=== PATIENT | male | born 1945 | race Caucasian/White ===

== ENCOUNTER 2024-12-12 11:57 | Emergency (ER) | payer MEDICARE, SELFPAY ==
[2024-12-12] VITALS (12 sets, daily range): BP systolic 118–174; BP diastolic 71–99; PULSE 60–78; RESP 8–29; TEMP 36.8; O2SAT 95–100
--- NOTE | ~2024-12-12 | XR_ITS ---
EXAMINATION: XR chest 2V 12/12/2024 12:28 INDICATION: EXAMINATION: XR chest 2V 12/12/2024 12:28 INDICATION: Weakness and dizziness PROCEDURE: AP portable chest COMPARISON: No prior studies for comparison. FINDINGS: No focal pneumonia. There is left basilar atelectasis. No edema. The cardiomediastinal silh ouette is within normal limits. There are no pleural effusions. There is no pneumothorax suspected. IMPRESSION: 1: NO ACUTE CARDIOPULMONARY DISEASE. PROCEDURE: COMPARISON: FINDINGS: The lungs are clear. The cardiomediastinal silhouette is within normal limits. There are no pleural effusions. There is no pneumothorax suspected. IMPRESSION: 1: NO ACUTE CARDIOPULMONARY DISEASE. Reviewed, dictated and finalized at location B. IMPRESSION: 1: NO ACUTE CARDIOPULMONARY DISEASE. PROCEDURE: COMPARISON: FINDINGS: The lungs are clear. The cardiomediastinal silhouette is within norm al limits. There are no pleural effusions. There is no pneumothorax suspected .
--- NOTE | 2024-12-12 12:02 | ECG_ITS ---
Test Date: 2024-12-12 12:08:00 Measurements Intervals [place] Rate: 70 P: 16 MO: 216 QRS: -42 QRSD: 142 T: -4 QT: 412 QTc: 446 Interpretive Statements SINUS RHYTHM WITH FIRST DEGREE AV BLOCK MARKED LEFT AXIS DEVIATION [QRS AXIS < -30] RIGHT BUNDLE BRANCH BLOCK [120+ ms QRS DURATION, UPRIGHT V1, 40+ ms S IN I/aVL/V4/V5/V6] ABNORMAL ECG No previous ECG available for comparison Electronically Signed On 12-12-2024 14:21:53 CDT by Alberto Cleveland M.D.
[2024-12-12 12:14] LABS: Hematocrit 41.4 % (42.0-52.0); Hemoglobin 13.7 g/dL (14.0-18.0); Immature Granulocyte Percent A 0.6 % (0-0.5); Lymphocytes Absolute Auto 0.69 K/mm3 (0.9-3.2); Mean Corpuscular HGB Conc 33.1 g/dl (32-36); Mean Corpuscular Hemoglobin 30.6 pg (26-34); Mean Corpuscular Volume 92.6 fl (80-100); Nucleated Red Blood Cells Absolute Auto 0.000 K/mm3 (0.0-0.012); Nucleated Red Blood Cells Perc 0.0 % (0.0-0.2); Platelet Count Result 146 k/mm3 (150-375); Red Blood Count 4.47 M/mm3 (4.6-6.20); White Blood Count 10.3 K/mm3 (4.5-10.0)
[2024-12-12 12:38] LABS: Alanine Aminotransferase 29 U/L (6-50); Albumin Level 4.6 g/dL (3.5-5.1); Alkaline Phosphatase 58 U/L (38-126); Aspartate Amino Transferase 32 U/L (17-59); Bilirubin,Total 0.6 mg/dL (0.2-1.3); Blood Urea Nitrogen 26 mg/dL (9-20); Calcium 9.9 mg/dL (8.4-10.2); Carbon Dioxide 23 mmol/L (22-30); Estimated CRCL calculation 56 ml/min; Estimated Glomerular Filt Rate > 60; Glucose 163 mg/dL (65-110); Total Protein 7.4 g/dL (6.3-8.2)
[2024-12-12 12:56] LABS: Anion Gap 11 mmol/L (4-12); Chloride 100 mmol/L (98-107); Potassium 4.7 mmol/L (3.4-5.0); Sodium 134 mmol/L (137-145)
--- OUTSIDE RECORDS SUMMARY | 2024-12-12 13:08 | XMS_ITS | Clinical Summary ---
Author Organization [facility] Address [address] [place] [address] Care Team Providers Care Deboning Team Leader Name Role Phone Alberto Vasquez MD Primary Care Provider [phone] Allergies No known active allergies Medications atorvastatin (LIPITOR) 40 mg tabletIndications:Prim canelo hypercholesterolemia Take 1 tablet (40 mg total) by mouth daily 90 tablet 3 01/30 Active omeprazole (PriLOSEC) 20 mg capsuleIndications:Gas troesophageal reflux disease without esophagitis Take 1 capsule (20 mg total) by mouth daily 90 capsule 3 01/30 Active sildenafiL, pulm.hypertension, (REVATIO) 20 mg tabletIndications: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 TAKE 1 TABLET BY MOUTH ONCE DAILY NEEDED FOR ERECTILE DYSFUNCTION 20 tablet 11 2023 Active lisinopriL (PRINIVIL,ZESTRIL) 40 mg tabletIndications:Esse ntial hypertension TAKE 1 TABLET(40 MG) BY MOUTH DAILY 90 tablet 4 2024 Active finasteride (PROSCAR) 5 mg tabletIndications:Augustine gn prostatic hyperplasia with urinary frequency Take 1 tablet (5 mg total) by mouth daily 90 tablet 2 06/23 Active pregabalin (LYRICA) 75 mg capsule Take 1 capsule (75 mg total) by mouth 2 (two) times a day 60 capsule 3 03/[address] (CYMBALTA) 30 mg capsule Take 1 capsule (30 mg total) by mouth daily 30 capsule 3 2024 Active HYDROcodone-acetaminop hen (NORCO) 5-325 mg per tabletIndications:Pain Take 1 tablet by mouth every 6 (six) hours as needed for pain 30 tablet 2024 Active ALPRAZolam (XANAX) 0.5 mg tabletIndications:Gene ralized anxiety disorder TAKE 1/2 TABLET(0.25 MG) BY MOUTH EVERY NIGHT NEEDED FOR ANXIETY 30 tablet 2024 Active amoxicillin-clavulanat e (AUGMENTIN) 875-125 mg per tabletIndications:Non- recurrent acute suppurative otitis media of right ear without spontaneous rupture of tympanic membrane Take 1 tablet by mouth 2 (two) times a day for 7 days 14 tablet 12/18 Active ALPRAZolam (XANAX) 0.5 mg tabletIndications:Gene ralized anxiety disorder TAKE 1/2 TABLET(0.25 MG) BY MOUTH EVERY NIGHT NEEDED FOR ANXIETY 30 tablet 11/27 Discontinued HYDROcodone-acetaminop hen (NORCO) 5-325 mg per tabletIndications:Pain Take 1 tablet by mouth every 6 (six) hours as needed for pain 30 tablet 11/17 Discontinued( Reorder) gabapentin (NEURONTIN) 300 mg capsule Take 1 capsule (300 mg total) by mouth 2 (two) times a day 60 capsule 12/11 Discontinued( No longer taking - Do not display on AVS) Active Problems Problem Noted Date Diagnosed Date Medicare annual wellness visit, subsequent 01/25 Routine general medical exam ination at a health care facility 01/25/2023 Screening for AAA (abdominal aortic aneurysm) Essential hypertension 01/25/2023 Depression screening negative:: 05/1805/17/2022 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 02/16/2022 Other chronic pain 02/16/2022 Arthritis of left hip 02/14/2022 Primary osteoarthritis of left hip 01/16/2022 Overview (01/16/2022): Added automatically from request for surgery [id number] Hereditary and idiopathic neuropathy, unspecifie d 05/28/2021 Assessment & Plan (12/11/2022 4:30 PM CDT): Stable, generally well controlled, patient reports no significant progression Patient reports continue on gabapentin 600 mg nightly; reports significant side effects including feeling goofy and sedation At this time continue gabapentin 600 mg nightly, will continue to monitor and taper once tolerating Presence of left artificial hip joint 05/28/2021 Vitamin D insufficiency 12/05/2017 Elevated low density lipoprotein (LDL) cholester ol level 03/08/2016 Perez's esophagus 12/02/2015 Overview (12/11/2018): Thyssen q3yr EGD Last EGD 2017 Assessment & Plan (12/11/2022 4:31 PM CDT): Follows with GI, last EGD was 2017; patient scheduling for EGD this January Continue Prilosec 20 mg daily Elevated blood pressure reading 08/31/2015 Assessment & Plan (12/11/2022 4:31 PM CDT): Well controlled, blood pressure at goal today Continue lisinopril 40 mg daily Hx of colonoscopy 11/30/2014 Benign prostatic hyperplasia 10/29/2013 Assessment & Plan (12/11/2022 4:31 PM CDT): Stable, generally well controlled, continue to monitor and monitor PSA Encounter for Medicare annual wellness exam 08/2013 Overview (01/20/2021): Last AWV: 01/20/21 Last annual screening for alcohol misuse (G0442): Last annual screening for depression/ PHQ9 (G0444): Last IBT for reduction of CVD (G0446): Last colonoscopy and date for recall: 08/2017 Last PSA: 01/20/21 Generalized anxiety disorder 10/29/2013 Overview (12/05/2017): Takes a xanax every day, fires it up each evening. In large part triggered by the pain Assessment & Plan (12/11/2022 4:30 PM CDT): Manageable, well controlled Continue Xanax 0.5 mg p.r.n. for severe anxiety Assessment & Plan (01/20/2021 10:25 AM CDT): STABLE Gastroesophageal reflux disease 10/29/2013 Assessment & Plan (12/11/2022 4:31 PM CDT): History of Perez's esophagus; follows with GI, scheduled for repeat EGD this year Continue omeprazole 20 mg daily Mononeuritis 10/29/2013 Piriformis syndrome 10/29/2013 Pain in extremity 10/18/2012 Low back pain 10/18/2012 Assessment & Plan (08/27/2020 10:58 AM CDT): I am still not sure the origin of this pain. He will address w/ NSGY Arthralgia of hip 09/22/2009 Overview (12/05/2017): In non-stop PT [facility] Assessment & Plan (12/05/2017 11:17 AM CDT): F/u Dr Workman 11/2017 Resolved Problems Problem Noted Date Diagnosed Date Resolved Date Acute pyelonephritis 05/17/2018 019 Overview (05/17/2018): On left Assessment & Plan (05/22/2018 4:44 PM COMPRESSOR REPAIRER): Renal condition is improving with treatment. Continue current medications. Renal condition will be reassessed in 1 month. We will check a renal us for stones Assessment & Plan (05/17/2018 4:40 PM COMPRESSOR REPAIRER): Renal condition is newly identified. Medication changes per orders. Renal condition will be reassessed 1 week. Increase fluid Despite warning I feel we need cipro for this and even so in light of yesterdays warning about AAA and in fact he was tested for this and was neg so is not high risk for it Encounter for Medicare annual wellness exam 12/05/2017 12/11/2018 Overview (12/05/2017): Performed 11/2017 Assessment & Plan (12/05/2017 11:19 AM CDT): Repeat 11/2018 We completed an HRA and provided a PPPS Umbilical hernia without obs truction and without gangrene 06/29/2016 12/05/2017 Nervousness(799.21) 05/29/2013 12/06/19 18 Encounters Date Type Department Care Team Description 12/11/2024 3:30 PM CDT Office Visit [facility] at [address] [phone] Jennifer Escoto NP Non-recurrent acute suppurative otitis media of right ear without spontaneous rupture of tympanic membrane (Primary Dx) 12/11/2024 10:00 AM CDT Office Visit [facility] Orthopaedic Surgery [address] [place] [address] Medical Office Building [address] [place] [address] Reuben Dangelo MD Lumbar radiculopathy (Primary Dx) 12/10/2024 1:36 PM CDT - 12/10/2024 11:59 PM CDT Hospital Encounter [facility] [address] [place] [address] Reuben Dangelo MD Lumbar radiculopathy Discharge Disposition: Discharge to home or self care 12/10/2024 12:56 PM CDT - 12/10/2024 11:59 PM CDT Hospital Encounter [facility] [address] [facility] [address] [place] [address] Osteoporosis, unspecified osteoporosis type, unspecified pathological fracture presence Discharge Disposition: Discharge to home or self care 12/03/2024 10:00 AM CDT Office Visit [facility] 6th [place] [address] [place] [address] Radha Severino NP Sensorimotor neuropathy (Primary Dx) 11/13/2024 12:30 PM CDT Office Visit [facility] Orthopaedic Surgery [address] [place] [address] Medical Office Building [address] [place] [id number] Reuben Dangelo MD Osteoporosis, unspecified osteoporosis type, unspecified pathological fracture presence (Primary Dx); Lumbar radiculopathy 11/13/2024 Telephone [facility] Orthopaedic Surgery [address] [facility] 6th [place] [address] [place] [phone] Karma Workman MD 09/22/2024 1:55 PM CDT - 09/22/2024 11:59 PM CDT Hospital Encounter [facility] [address] [place] [address] [address] [place] [address] Karma Workman MD Lumbar radiculopathy; Pain of left hip; Myofascial pain; Hereditary and idiopathic peripheral neuropathy; Spinal stenosis, lumbar region, with neurogenic claudication Discharge Disposition: Discharge to home or self care 09/18/2024 Telephone Radiology - [address] Ortho [address] [facility] [address] [place] [address] Alyssa Lees, RT 09/16/2024 10:20 AM CDT Office Visit [facility] Orthopaedic Surgery [address] [place] [address] Medical Office Building [address] [place] [address] Karma Workman MD Lumbar radiculopathy (Primary Dx); Pain of left hip; Myofascial pain; Hereditary and idiopathic peripheral neuropathy; Spinal stenosis, lumbar region, with neurogenic claudication 09/16/2024 10:07 AM CDT - 09/16/2024 11:59 PM CDT Hospital Encounter [facility] [address] [place] [address] [address] [place] [address] Lumbar radiculopathy Discharge Disposition: Discharge to home or self care from Last 3 Months Immunizations Immunization Administration Dates Next Due COVID-19 mRNA (PFIZER) 0.3 m L (30 mcg) vaccine (12 years and up) 08/17/2023 Influenza, Quad, Adjuvantate d, Intramuscular 03/23/2022 Influenza, Quadrivalent, Hig h Dose, Preservative Free, Intrr 02/19/2023,03/17/2021,02/26/2020,02/19,02/19/2018,02/16/2017 Influenza, Trivalent, High D ose, Split, Preservative Free, Intramuscular 02/19/2019,02/19/2018,02/16/2017,01/25,02/06/2013 Influenza, Unspecified 02/26/2020,2018,02/19/2018,02/16 Moderna SARS-CoV-2 Monovalen t Vaccination (12+ YRS) 01/26/2021,08/04/2020,07/05/2020 Pneumococcal Conjugate PCV 13 10/30/2013 Pneumococcal Polysaccharide PPV23 11/30/2009 RSV, Bivalent, Protein Subun it Rsvpref, Diluent (Abrysvo) 03/27/2023 Sars-cov-2 Covid-19 Mrna, Bi valent, Original/omicron Ba.1 02/19/2023 ZOSTER Recombinant 02/11/2018 Surgical History Surgery Date Site/Laterality Comments KNEE ARTHROSCOPY Arthroscopy knee EPIDURAL INJECTION LUMBOSACRAL 10/21/2014 N/A EPIDURAL INJECTION LUMBOSACRAL 09/14/2014 N/A EPIDURAL INJECTION LUMBOSACRAL 02/28/2013 N/A EPIDURAL INJECTION LUMBOSACRAL 10/28/2012 N/A HERNIA REPAIR FL FLUORO GUIDED INJECTION H IP LEFT 04/08/2020 Left FL UPPER GI AIR CONTRAST W KUB 08/19/2020 Left FL FLUORO GUIDED INJECTION H IP LEFT 01/17/2021 Left KNEE SURGERY FL FLUORO GUIDED INJECTION H IP LEFT 06/06/2021 Left IR INJECTION ARTHROGRAM SI JOINT LEFT INCLUDES IMAGING GUIDANCE 09/05/2021 Left HIP SURGERY KNEE ARTHROSCOPY W/ LATERAL RELEASE R. knee 20 yrs ago JOINT REPLACEMENT 01/2022 FL UPPER GI AIR CONTRAST W KUB 09/22/2024 Left Medical History Medical History Date Comments Peripheral neuropathy Gastric reflux Hiatal hernia GERD (gastroesophageal reflux disease) 30 yrs ag o Hypertension Family History Medical History Relation Name Comments Alcohol abuse Father Jean Paul Grant Diabetes Father Jean Paul Grant No Known Problems Mother Alcohol abuse Other Hypertension Other Relation Name Status Comments Father Jean Paul Grant Mother Other Social History Tobacco Use Types Packs/Day Years Used Date Smoking Tobacco: Never Smokeless Tobacco: Never Tobacco Cessation:Counseling Given: Not Answered Alcohol Use Standard Drinks/Week Comments No 0 (1 standard drink = 0.6 oz pur e alcohol) AUDIT-C Answer Date Recorded Q1: How often do you have a drink containing alcohol? Never 12/11/2022 Q2: How many drinks containi ng alcohol do you have on a typical day when you are drinking? Patient does not drink Q3: How often do you have si x or more drinks on one occasion? Never 12/11/2022 PHQ-2 Answer Date Recorded PHQ-2 Total Score (If total score is 3 or more points, staff should administer the PHQ-9) 0 12/11/2022 Personal Safety Answer Date Recorded Have you ever been in or are you currently in a harmful physical or emotional relationship or is someone making you feel afraid or unsafe? Denies 12/31/2023 Sex and Gender Information Value Date Recorded Sex Assigned at Not on file Legal Sex Male 8:24 PM COMPRESSOR REPAIRER Gender Identity Male 06/08/2019 10:04 PM COMPRESSOR REPAIRER Sexual Orientation Straight 06/08/2019 10 :04 PM COMPRESSOR REPAIRER Obstetrics History Last Filed Vital Signs Vital Sign Reading Time Taken Comments Blood Pressure 124/76 12/11/2024 3:01 PM CDT Pulse 64 12/11/2024 3:01 PM CDT Temperature 36.2 C (97.1 F) 12/11/2024 3:01 PM CDT Respiratory Rate 20 12/11/2024 3:01 PM CDT Oxygen Saturation 96% 12/11/2024 3:01 PM CDT Inhaled Oxygen Concentration - - Weight 89.4 kg (197 lb) 12/11/2024 3:01 PM CDT Height 182.9 cm (6') 11/13/2024 12:16 PM CDT Body Mass Index 26.72 11/13/2024 12:16 PM CDT Plan of Treatment Health Maintenance Due Date Last Done Comments Hepatitis C Screening 1945 DTaP/Tdap/Td Vaccine (1 - Tdap) 1956 Hepatitis B Screening 1963 Zoster Vaccine (2 of 2) 04/08/2018 02/11/2018 Colon Cancer Screening-FIT 08/27/2018 08/27/2017 Colon Cancer Screening-FOBT 08/27/2018 08/27/2017 Pneumococcal vaccine 65+ (3 of 3 - PCV20 or PCV21) 10/30/2018 10/30/2013, 11/30/2009 Colon Cancer Screening-DNA Stool 08/27/2020 08/28/19 Colon Cancer Screening-CT Colonography 08/27/2022 08/27/2017 Colon Cancer Screening-Sigmoidoscopy 08/27/2022 08/27/2017 Depression Screening 12/12/2023 12/11/2022, 01/23/2022, 01/23/2022, Additional history exists Fall Risk Assessment 12/12/2023 12/11/2022, 02/15/2022, 01/23/2022, Additional history exists Covid-19 Vaccine (2023- 5 season) 2024 08/17/2023, 02/19/2023, 09/22/2021, Additional history exists Influenza Vaccine (#1) 2025 , 03/23/2022, 03/17/2021, Additional history exists Well Visit 65+ 01/30/2025 01/31/2024, 12/28, 01/23/2022, Additional history exists Colon Cancer Screening-Colonoscopy 08/28/20272017 Colorectal Cancer Screening 08/28/2027 Medical Devices Implanted Type Area Hoop Flaring Machine Operator Helper Device Identifier Shelf Expiration Date Model / Serial / Lot Surgical Mesh Umbilical [employer] Shell Acet Hip Grp E Por Quad Ti Prime Am 60mm [id number] - [id number] Implanted:Qty: 1 on 02/14/2022 by Reuben Dangelo MD at [facility] Left: Hip [employer] [id number] 12/26/2028 [id number] / / [id number] [employer] [id number] Procotyl Prime Od40 Mm Liner Acetabular Sterile Latex Free - [id number] Implanted:Qty: 1 on 02/14/2022 by Reuben Dangelo MD at [facility] Left: Hip [employer] [id number] 02/25/2026 [id number] / / [id number] [employer] Dynasty Lineage 6.5mm 35mm Acetabular Screw Bone Biofoam [id number] - [id number] Implanted:Qty: 1 on 02/14/2022 by Reuben Dangelo MD at [facility] Left: Hip [employer] [id number] 08/26/2029 [id number] / / [id number] [employer] Dynasty Lineage 6.5mm 20mm Acetabular Screw Bone Biofoam [id number] - [id number] Implanted:Qty: 1 on 02/14/2022 by Reuben Dangelo MD at [facility] Left: Hip [employer] [id number] 01/26/2029 [id number] / / [id number] [employer] Profemur Tl2 Hip 9 High Offset Stem Femoral Sterile Latex Free [id number] - [id number] Implanted:Qty: 1 on 02/14/2022 by Reuben Dangelo MD at [facility] Left: Hip [employer] [id number] 11/25/2029 [id number] / / [id number] [employer] Procotyl 40mm 12/14 Medium Head Femoral Biolox Delta Sterile [id number] - [id number] Implanted:Qty: 1 on 02/14/2022 by Reuben Dangelo MD at [facility] Left: Hip [employer] [id number] 10/26/2029 [id number] / / [id number] Procedures Procedure Name Priority Date/Time Associated Diagnosis Comments DEXA AXIAL SKELETON BONE DENSITY 1 OR MORE SITES Schedule Routine, Read Routine (OP Routine) 12/10/2024 2:09 PM CDT Osteoporosis, unspecified osteoporosis type, unspecified pathological fracture presence CT LUMBAR SPINE WO CONTRAST Schedule Routine, Read Routine (OP Routine) 12/10/2024 1:42 PM CDT Lumbar radiculopathy TRANSFORAMINAL EPIDURAL INJECTION LUMBAR SACRAL 1 LEVEL LEFT Schedule Routine, Read Routine (OP Routine) 09/22/2024 3:00 PM CDT Lumbar radiculopathy Pain of left hip Myofascial pain Hereditary and idiopathic peripheral neuropathy Spinal stenosis, lumbar region, with neurogenic claudication XR SPINE LUMBAR COMPLETE 4 OR MORE VIEWS Schedule Routine, Read Routine (OP Routine) 09/16/2024 10:17 AM CDT Lumbar radiculopathy HM COLONOSCOPY Routine 08/27/2017 from Last 3 Months or Most Recently Relevant to Health Maintenance Results * DEXA Axial Skeleton Bone Density Multi Site (12/10/2024 2:09 PM CDT) Anatomical Region Laterality Modality Body N/A Digital Radiogra phy 12/10/2024 4:18 PM CDT Impressions 12/10/2024 5:41 PM CDT 1. The bone mineral density of the lumbar spine is normal. 2. The bone mineral density of the right femoral neck is mildly decreased. 3. The bone mineral density of the right total hip is normal. 4. Overall, the above findings are diagnostic of low bone mass (osteopenia) by WHO criteria. 5. Based on the FRAX fracture risk model, the 10-year probability for major osteoporotic fracture is 7.4% and that for hip fracture is 2.5%. This 10-year fracture risk estimate was calculated using the risk factors noted in the history above, along with the femoral neck bone density. FRAX is intended to help guide treatment decisions in men over age 50 and postmenopausal women with low bone mass (osteopenia). The National Osteoporosis Foundation (NOF) recommends that FDA-approved medical therapies be considered in postmenopausal women and men age 50 years and older with osteoporosis and those with low bone mass whose 10-year fracture probability by FRAX is >= 20% for major osteoporotic fracture or >= 3% for hip fracture. However, all treatment decisions require clinical judgment and consideration of individual patient factors, including patient preferences, comorbidities, previous drug use, risk factors not captured in the FRAX model (e.g., frailty, falls, vitamin D deficiency, increased bone turnover, interval significant decline in bone density) and possible under- or overestimation of fracture risk by FRAX. General comments regarding interpretation of bone density measurements: A) In children, premenopausal woman and males under age 50 not at increased risk for fractures only Z-scores, not T-scores are used to indicate risk. A Z-score above -2.0 is defined as within the expected range for age and Z-score at or less than -2.0 is below the expected range for age. A Z-score below the expected range for age in a patient with recent fractures and/or chronic corticosteroid treatment is consistent with a diagnosis of osteoporosis. B) In post menopausal women and males over 50, comparison of the measured bone mineral density with the average value in young normal subjects (the T-score) has been found to be useful in assessing fracture risk. Fracture risk approximately doubles for each 1.0 standard deviation (SD) in individual's hip or spine bone mineral density is below the average value of young normal subjects. The World Health Organization (WHO) has defined T-scores of -1.0 to -2.5 as diagnostic of low bone mass (OSTEOPENIA), and T-scores of -2.5 or lower to be diagnostic of OSTEOPOROSIS, based on the site of lowest bone density. Note that there will be a change in reporting format and reference databases as patients move from the younger population (group A) to the older population (group B) The National Osteoporosis Foundation (www.nof.org) recommends adequate intake of calcium and vitamin D and regular weight-bearing exercise in all patients. They recommend pharmacologic treatment in postmenopausal women and men age 50 and older presenting with any of the followin) Osteoporosis, after appropriate evaluation to exclude secondary causes. 2) A hip or vertebral (clinical or radiographic) fracture, regardless of the bone density. 3) Low bone mass (Osteopenia) and one or more of: other prior fractures, secondary causes associated with high risk of fracture (such as glucocorticoid use or total immobilization), or computed high risk of fracture (10-yr probability of hip fracture >= 3% or a 10-yr probability of any major osteoporosis-related fracture >= 20% based on the [place].-adapted WHO algorithm), available at http://www.shef.ac.uk/FRAX). Dictated by: Sylvia Strauss M.D. The radiology attending physician has personally reviewed this study, and had reviewed and/or edited this written report and agrees with it. Electronically signed by: Shanice Rabago M.D. Narrative 12/10/2024 5:41 PM CDT BONE DENSITOMETRY OF THE SPINE AND HIP DATE OF STUDY: 12/10/2024 HISTORY: 79-year-old asymptomatic man being evaluated for osteoporosis. Currently, he is not taking any antiresorptive medications. Evaluate bone mineral density. Additional risk factors for fracture: none. FINDINGS (SPINE): The bone mineral density of L1-L4 was assessed by dual-energy x-ray absorptiometry. The average bone mineral density within this region is 1.047 gm/sq-cm. This is 0.7 standard deviations above the mean of the average bone mineral density for age- and gender-matched subjects (the Z-score). It is equal to the mean peak bone mineral density in young adults (the T-score). FINDINGS (FEMORAL NECK): The bone mineral density of the right femoral neck was assessed by dual-energy x-ray absorptiometry. The average bone mineral density within the femoral neck region is 0.723 gm/sq-cm. This is equal to the mean of the average bone mineral density for age- and gender-matched subjects (the Z-score). It is 1.1 standard deviations below the mean peak bone mineral density in young adults (the T-score). FINDINGS (TOTAL HIP): The bone mineral density of the right hip was assessed by dual-energy x-ray absorptiometry. The average bone mineral density within the total hip region is 0.945 gm/sq-cm. This is 0.4 standard deviations above the mean of the average bone mineral density for age- and gender-matched subjects (the Z-score). It is equal to the mean peak bone mineral density in young adults (the T-score). SUMMARY OF CURRENT RESULTS: Region BMD T-score Z-score AP Spine (L1-L4) 1.047 0.0 0.7 Femoral Neck (Right) 0.723 -1.1 0.0 Total Hip (Right) 0.945 0.0 0.4 Procedure Note Shanice Rabago MD - 12/10/2024 BONE DENSITOMETRY OF THE SPINE AND HIP DATE OF STUDY: 12/10/2024 HISTORY: 79-year-old asymptomatic man being evaluated for osteoporosis. Currently, he is not taking any antiresorptive medications. Evaluate bone mineral density. Additional risk factors for fracture: none. FINDINGS (SPINE): The bone mineral density of L1-L4 was assessed by dual-energy x-ray absorptiometry. The average bone mineral density within this region is 1.047 gm/sq-cm. This is 0.7 standard deviations above the mean of the average bone mineral density for age- and gender-matched subjects (the Z-score). It is equal to the mean peak bone mineral density in young adults (the T-score). FINDINGS (FEMORAL NECK): The bone mineral density of the right femoral neck was assessed by dual-energy x-ray absorptiometry. The average bone mineral density within the femoral neck region is 0.723 gm/sq-cm. This is equal to the mean of the average bone mineral density for age- and gender-matched subjects (the Z-score). It is 1.1 standard deviations below the mean peak bone mineral density in young adults (the T-score). FINDINGS (TOTAL HIP): The bone mineral density of the right hip was assessed by dual-energy x-ray absorptiometry. The average bone mineral density within the total hip region is 0.945 gm/sq-cm. This is 0.4 standard deviations above the mean of the average bone mineral density for age- and gender-matched subjects (the Z-score). It is equal to the mean peak bone mineral density in young adults (the T-score). SUMMARY OF CURRENT RESULTS: Region BMD T-score Z-score AP Spine (L1-L4) 1.047 0.0 0.7 Femoral Neck (Right) 0.723 -1.1 0.0 Total Hip (Right) 0.945 0.0 0.4 IMPRESSION: 1. The bone mineral density of the lumbar spine is normal. 2. The bone mineral density of the right femoral neck is mildly decreased. 3. The bone mineral density of the right total hip is normal. 4. Overall, the above findings are diagnostic of low bone mass (osteopenia) by WHO criteria. 5. Based on the FRAX fracture risk model, the 10-year probability for major osteoporotic fracture is 7.4% and that for hip fracture is 2.5%. This 10-year fracture risk estimate was calculated using the risk factors noted in the history above, along with the femoral neck bone density. FRAX is intended to help guide treatment decisions in men over age 50 and postmenopausal women with low bone mass (osteopenia). The National Osteoporosis Foundation (NOF) recommends that FDA-approved medical therapies be considered in postmenopausal women and men age 50 years and older with osteoporosis and those with low bone mass whose 10-year fracture probability by FRAX is >= 20% for major osteoporotic fracture or >= 3% for hip fracture. However, all treatment decisions require clinical judgment and consideration of individual patient factors, including patient preferences, comorbidities, previous drug use, risk factors not captured in the FRAX model (e.g., frailty, falls, vitamin D deficiency, increased bone turnover, interval significant decline in bone density) and possible under- or overestimation of fracture risk by FRAX. General comments regarding interpretation of bone density measurements: A) In children, premenopausal woman and males under age 50 not at increased risk for fractures only Z-scores, not T-scores are used to indicate risk. A Z-score above -2.0 is defined as within the expected range for age and Z-score at or less than -2.0 is below the expected range for age. A Z-score below the expected range for age in a patient with recent fractures and/or chronic corticosteroid treatment is consistent with a diagnosis of osteoporosis. B) In post menopausal women and males over 50, comparison of the measured bone mineral density with the average value in young normal subjects (the T-score) has been found to be useful in assessing fracture risk. Fracture risk approximately doubles for each 1.0 standard deviation (SD) in individual's hip or spine bone mineral density is below the average value of young normal subjects. The World Health Organization (WHO) has defined T-scores of -1.0 to -2.5 as diagnostic of low bone mass (OSTEOPENIA), and T-scores of -2.5 or lower to be diagnostic of OSTEOPOROSIS, based on the site of lowest bone density. Note that there will be a change in reporting format and reference databases as patients move from the younger population (group A) to the older population (group B) The National Osteoporosis Foundation (www.nof.org) recommends adequate intake of calcium and vitamin D and regular weight-bearing exercise in all patients. They recommend pharmacologic treatment in postmenopausal women and men age 50 and older presenting with any of the followin) Osteoporosis, after appropriate evaluation to exclude secondary causes. 2) A hip or vertebral (clinical or radiographic) fracture, regardless of the bone density. 3) Low bone mass (Osteopenia) and one or more of: other prior fractures, secondary causes associated with high risk of fracture (such as glucocorticoid use or total immobilization), or computed high risk of fracture (10-yr probability of hip fracture >= 3% or a 10-yr probability of any major osteoporosis-related fracture >= 20% based on the [place].-adapted WHO algorithm), available at http://www.shef.ac.uk/FRAX). Dictated by: Sylvia Strauss M.D. The radiology attending physician has personally reviewed this study, and had reviewed and/or edited this written report and agrees with it. Electronically signed by: Shanice Rabago M.D. Reuben Dangelo MD IMPramod DXA PROCEDURE S Final Result * CT Lumbar Spine WO Contrast (12/10/2024 1:42 PM CDT) Anatomical Region Laterality Modality Spine N/A Computed Tomogra phy 12/10/2024 2:35 PM CDT Impressions 12/10/2024 2:35 PM CDT Levoscoliosis with multilevel degenerative changes of the lumbar spine as described above most notable at L3-L4 and L4-L5 where there is moderate spinal canal stenosis. In addition there is severe right neural foraminal stenosis at L4-L5. Electronically signed by: Roya Reyes M.D. Narrative 12/10/2024 2:35 PM CDT EXAMINATION: CT of the lumbar spine without contrast HISTORY: 79 years-old Male with intermittent lumbar radiculopathy localized to left without and posterolateral left thigh. TECHNIQUE: CT of the lumbar spine was performed according to the standard protocol without intravenous contrast. COMPARISON: MRI 09/02/2024 FINDINGS: There is mild levoscoliosis of the curvature with the apex at L3-L4 and slight rightward subluxation of L3 on L4. There is no acute fracture. The vertebral bodies are normal in height without compression fractures. The intervertebral disks have severe degeneration at L5-S1, and moderate degeneration at L4-L5 with loss of the intervertebral disc height. There is no soft tissue abnormality. The abdominal aorta has calcified atherosclerosis. There is atrophy of the posterior paraspinal muscles. L1-L2: The disc is normal in configuration. There is mild bilateral facet arthropathy. There is no neuroforaminal stenosis. There is no spinal canal stenosis. L2-L3: Mild disc bulge. There is mild bilateral facet arthropathy. There is mild left neuroforaminal stenosis. There is mild spinal canal stenosis. L3-L4: Moderate disc bulge. There is moderate bilateral facet arthropathy. There is moderate bilateral neuroforaminal stenosis. There is moderate spinal canal stenosis. L4-L5: Moderate disc bulge. There is severe right and moderate left facet arthropathy. There is severe right and moderate left neuroforaminal stenosis. There is moderate spinal canal stenosis. L5-S1: Moderate disc bulge. There is moderate bilateral facet arthropathy. There is moderate bilateral neuroforaminal stenosis. There is no spinal canal stenosis. Procedure Note Roya Reyes MD - 07/16/2025 EXAMINATION: CT of the lumbar spine without contrast HISTORY: 79 years-old Male with intermittent lumbar radiculopathy localized to left without and posterolateral left thigh. TECHNIQUE: CT of the lumbar spine was performed according to the standard protocol without intravenous contrast. COMPARISON: MRI 09/02/2024 FINDINGS: There is mild levoscoliosis of the curvature with the apex at L3-L4 and slight rightward subluxation of L3 on L4. There is no acute fracture. The vertebral bodies are normal in height without compression fractures. The intervertebral disks have severe degeneration at L5-S1, and moderate degeneration at L4-L5 with loss of the intervertebral disc height. There is no soft tissue abnormality. The abdominal aorta has calcified atherosclerosis. There is atrophy of the posterior paraspinal muscles. L1-L2: The disc is normal in configuration. There is mild bilateral facet arthropathy. There is no neuroforaminal stenosis. There is no spinal canal stenosis. L2-L3: Mild disc bulge. There is mild bilateral facet arthropathy. There is mild left neuroforaminal stenosis. There is mild spinal canal stenosis. L3-L4: Moderate disc bulge. There is moderate bilateral facet arthropathy. There is moderate bilateral neuroforaminal stenosis. There is moderate spinal canal stenosis. L4-L5: Moderate disc bulge. There is severe right and moderate left facet arthropathy. There is severe right and moderate left neuroforaminal stenosis. There is moderate spinal canal stenosis. L5-S1: Moderate disc bulge. There is moderate bilateral facet arthropathy. There is moderate bilateral neuroforaminal stenosis. There is no spinal canal stenosis. IMPRESSION: Levoscoliosis with multilevel degenerative changes of the lumbar spine as described above most notable at L3-L4 and L4-L5 where there is moderate spinal canal stenosis. In addition there is severe right neural foraminal stenosis at L4-L5. Electronically signed by: Roya Reyes M.D. Reuben Dangelo MD IMG CT PROCEDURES Final Result * IR Transforaminal Epidural Injection Lumbar Sacral 1 Level Left (09/22/2024 3:00 PM CDT) Narrative [facility] - 09/22/2024 3:01 PM CDT The images from this study are not interpreted by Radiology. Please refer to the physician's procedure / OR operative note. us Karma Workman MD IMG IR PROCEDURES Final Re sult [facility] * X-ray lumbar spine complete 4+ views (09/16/2024 10:17 AM CDT) Anatomical Region Laterality Modality Spine N/A Computed Radiogr aphy 09/16/2024 11:0 8 AM CDT Impressions 09/16/2024 12:17 PM CDT Multilevel degenerative lumbar disc disease which is worst and moderate at L5-S1. Dictated by: Jagdish Olsen M.D. The radiology attending physician has personally reviewed this study, and had reviewed and/or edited this written report and agrees with it. Electronically signed by: Kiel Kelly D.O. Narrative 09/16/2024 12:17 PM CDT EXAM: XR SPINE LUMBAR 4 OR MORE VIEWS HISTORY: Lumbar radiculopathy FINDINGS: 4 radiographs of the lumbar spine including flexion and extension views are compared with lumbar spine MRI dated 09/02/2024. There is mild lumbar levocurvature centered at L3-L4. There is no inducible spondylolisthesis. There is multilevel degenerative lumbar disc height loss which is worst and moderate at L5-S1. There is lower lumbar facet arthropathy. There is a partially imaged left total hip arthroplasty. Calcification of the abdominal aorta. Procedure Note Kiel Kelly, - 09/16/2024 EXAM: XR SPINE LUMBAR 4 OR MORE VIEWS HISTORY: Lumbar radiculopathy FINDINGS: 4 radiographs of the lumbar spine including flexion and extension views are compared with lumbar spine MRI dated 09/02/2024. There is mild lumbar levocurvature centered at L3-L4. There is no inducible spondylolisthesis. There is multilevel degenerative lumbar disc height loss which is worst and moderate at L5-S1. There is lower lumbar facet arthropathy. There is a partially imaged left total hip arthroplasty. Calcification of the abdominal aorta. IMPRESSION: Multilevel degenerative lumbar disc disease which is worst and moderate at L5-S1. Dictated by: Jagdish Olsen M.D. The radiology attending physician has personally reviewed this study, and had reviewed and/or edited this written report and agrees with it. Electronically signed by: Kiel Kelly D.O. Karma Workman MD IMG XR PROCEDURES Final Re sult * COLONOSCOPY (08/27/2017) Colonoscopy Normal Historical Provider HEALTH MAINTENANCE Final Result from Last 3 Months or Most Recently Relevant to Health Maintenance Insurance MEDICARE [facility] MEDICARE SUPPLEMENT MEDICARE [employer] [place] [address] [place] [address] [facility] MEDICARE MEDICARE [employer] MEDICARE SUPPLEMENT MEDICARE [facility] MEDICARE [facility] MEDICARE SUPPLEMENT Advance Directives For more information, please contact: [phone] * Full Code (Latest Code Status on File) Date Activated Date Inactivated Comments 02/14/2022 3:09 PM 02/15/2022 4:20 PM Care Teams Deboning Team Leader Relationship Specialty Start Date End Date Alberto Vasquez MD PCP - General Internal Medicine 06/26/23
--- OUTSIDE RECORDS SUMMARY | 2024-12-12 13:08 | XMS_ITS | Encounter Summary ---
Author Organization [facility] Healthcare Address [address] [place] [address] Care Team Providers Care [place] Machine Operator Name Role Phone Alberto Vasquez MD Primary Care Provider [phone]- [phone] Reason for Referral * MRI/CAT/PET Scan (Routine) - Closed Specialty Diagnoses / Procedures Referred By Contac t Referred To Contact Radiology Diagnoses Lumbar radiculopathy Procedures CT Lumbar Spine WO Contrast Reuben Dangelo MD [address] [employer] [facility] [address] [place] [address] Phone: tel: fax: [address] [address] Referral ID Status Reason Start Date Expiration Date Visits Re quested Visits Authorized [id number] Closed 11/13/2024 12/13/2025 1 1 Reason for Visit * MRI/CAT/PET Scan (Routine) - Closed Specialty Diagnoses / Procedures Referred By Contac t Referred To Contact Radiology Diagnoses Lumbar radiculopathy Procedures CT Lumbar Spine WO Contrast Reuben Dangelo MD [address] [employer] [place] [address] Phone: tel: fax: [address] [phone] Referral ID Status Reason Start Date Expiration Date Visits Re quested Visits Authorized [id number] Closed 11/13/2024 12/13/2025 1 1 Encounter Details Date Type Department Care Team (Latest Contact Info) Description 12/10/2024 1:36 PM CDT - 12/10/2024 11:59 PM CDT Hospital Encounter [facility] [address] [place] [address] Reuben Dangelo MD [address] [facility] [address] [place] [address] Lumbar radiculopathy Discharge Disposition: Discharge to home or self care Social History Tobacco Use Types Packs/Day Years Used Date Smoking Tobacco: Never Smokeless Tobacco: Never Alcohol Use Standard Drinks/Week Comments No 0 (1 standard drink = 0.6 oz pur e alcohol) AUDIT-C Answer Date Recorded Q1: How often do you have a drink containing alcohol? Never 12/11/2022 Q2: How many drinks containi ng alcohol do you have on a typical day when you are drinking? 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 Gender Identity Male 06/08/2019 10:04 PM AIDS NURSE Sexual Orientation Straight 06/08/2019 10 :04 PM AIDS NURSE documented as of this encounter Medications at Time of Discharge ALPRAZolam (XANAX) 0.5 mg tabletIndications:Genera lized anxiety disorder TAKE 1/2 TABLET(0.25 MG) BY MOUTH EVERY NIGHT NEEDED FOR ANXIETY 30 tablet 5 atorvastatin (LIPITOR) 40 mg tabletIndications:Primar y hypercholesterolemia Take 1 tablet (40 mg total) by mouth daily 90 tablet [address] (CYMBALTA) 30 mg capsule Take 1 capsule (30 mg total) by mouth daily 30 capsule 3 5 finasteride (PROSCAR) 5 mg tabletIndications:Benign prostatic hyperplasia with urinary frequency Take 1 tablet (5 mg total) by mouth daily 90 tablet 2 5 026 HYDROcodone-acetaminophe n (NORCO) 5-325 mg per tabletIndications:Pain Take 1 tablet by mouth every 6 (six) hours as needed for pain 30 tablet 5 lisinopriL (PRINIVIL,ZESTRIL) 40 mg tabletIndications:Essent ial hypertension TAKE 1 TABLET(40 MG) BY MOUTH DAILY 90 tablet 4 5 omeprazole (PriLOSEC) 20 mg capsuleIndications:Gastr oesophageal reflux disease without esophagitis Take 1 capsule (20 mg total) by mouth daily 90 capsule 3 4 025 pregabalin (LYRICA) 75 mg capsule Take 1 capsule (75 mg total) by mouth 2 (two) times a day 60 capsule 3 5 025 sildenafiL, pulm.hypertension, (REVATIO) 20 mg tabletIndications:Erecti le dysfunction due to arterial insufficiency TAKE 1 TABLET BY MOUTH ONCE DAILY NEEDED FOR ERECTILE DYSFUNCTION 20 tablet 11 4 gabapentin (NEURONTIN) 300 mg capsule Take 1 capsule (300 mg total) by mouth 2 (two) times a day 60 capsule 5 025 documented as of this encounter Discharge Disposition Disposition Code Departure Means Destination Discharge to home or self care documented in this encounter Plan of Treatment Not on file documented as of this encounter Procedures Procedure Name Priority Date/Time Associated Diagnosis Comments CT LUMBAR SPINE WO CONTRAST Schedule Routine, Read Routine (OP Routine) 12/10/2024 1:42 PM CDT Lumbar radiculopathy documented in this encounter Results * CT Lumbar Spine WO Contrast (12/10/2024 [...] stenosis. Procedure Note Roya Reyes MD - 12/10/2024 EXAMINATION: CT of the lumbar spine without [...] Dangelo MD IMG CT PROCEDURES Final Result documented in this encounter Visit Diagnoses Diagnosis Lumbar radiculopathy Thoracic or lumbosacral neuritis or radiculitis, unspecified documented in this encounter Care Teams [place] Machine Operator Relationship Specialty Start Date End Date Alberto Vasquez MD PCP - General Internal Medicine 06/26/23 documented as of this encounter
--- OUTSIDE RECORDS SUMMARY | 2024-12-12 13:08 | XMS_ITS | Encounter Summary ---
Author Organization [facility] Healthcare Address [address] [place] [address] Care Team Providers Care Big Data Lead Name Role Phone Alberto Vasquez MD Primary Care Provider [phone]- [phone] Reason for Referral * Diagnostic Imaging (Routine) - Closed Specialty Diagnoses / Procedures Referred By Contac t Referred To Contact Diagnoses Osteoporosis, unspecified osteoporosis type, unspecified pathological fracture presence Procedures DEXA Axial Skeleton Bone Density Multi Site DEXA Axial Skeleton Bone Density Multi Site Reuben Dangelo MD [address] [place] [address] Phone: tel: fax: [place] [address] [address] [place] [phone] Referral ID Status Reason Start Date Expiration Date Visits Re quested Visits Authorized [id number] Closed 11/13/2024 12/13/2025 1 1 Reason for Visit * Diagnostic Imaging (Routine) - Closed Specialty Diagnoses / Procedures Referred By Contac t Referred To Contact Diagnoses Osteoporosis, unspecified osteoporosis type, unspecified pathological fracture presence Procedures DEXA Axial Skeleton Bone Density Multi Site DEXA Axial Skeleton Bone Density Multi Site Reuben Dangelo MD [address] [place] [address] Phone: tel: fax: [place] [phone] [place] [phone] Referral ID Status Reason Start Date Expiration Date Visits Re quested Visits Authorized [id number] Closed 11/13/2024 12/13/2025 1 1 Encounter Details Date Type Department Care Team (Latest Contact Info) Description 12/10/2024 12:56 PM CDT - 12/10/2024 11:59 PM CDT Hospital Encounter [facility] [address] [place] [address] [address] [place] [address] Osteoporosis, unspecified osteoporosis type, unspecified pathological fracture [...] on file Legal 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 Reuben Dangelo MD IMG DXA PROCEDURE S Final Result documented in this encounter Visit Diagnoses Diagnosis Osteoporosis, unspecified osteoporosis type, unspecified pathological fracture presence documented in this encounter Care Teams Big Data Lead Relationship Specialty Start Date End Date Alberto Vasquez MD PCP - General Internal Medicine 06/26/23 documented as of this encounter
--- OUTSIDE RECORDS SUMMARY | 2024-12-12 13:08 | XMS_ITS | Encounter Summary ---
Author Organization [facility] Healthcare Address [address] [place] [address] Care Team Providers Care Glaciologist Name Role Phone Alberto Vasquez MD Primary Care Provider [phone] Reason for Visit * Reason Comments Earache R ear pain and sinus facial discomfort x 3 weeks. 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 Gender Identity Male 06/08/2019 10:04 PM LEVELER Sexual Orientation Straight 06/08/2019 10 :04 PM LEVELER documented as of this encounter Last Filed Vital Signs Vital Sign Reading Time Taken Comments Blood Pressure 124/76 12/11/2024 3:01 PM CDT Pulse 64 12/11/2024 3:01 PM CDT Temperature 36.2 C (97.1 F) 12/11/2024 3:01 PM CDT Respiratory Rate 20 12/11/2024 3:01 PM CDT Oxygen Saturation 96% 12/11/2024 3:01 PM CDT Inhaled Oxygen Concentration - - Weight 89.4 kg (197 lb) 12/11/2024 3:01 PM CDT Height - - Body Mass Index 26.72 11/13/2024 12:16 PM CDT documented in this encounter Ordered Prescriptions Prescription Sig Dispense Quantity Refills Last Filled Start Date End Date amoxicillin-clavul anate (AUGMENTIN) 875-125 mg per tabletIndications: Non-recurrent acute suppurative otitis media of right ear without spontaneous rupture of tympanic membrane Take 1 tablet by mouth 2 (two) times a day for 7 days 14 tablet 12/11/2024 12/18/2024 documented in this encounter Progress Notes * Jennifer Escoto, LABORATORY EQUIPMENT INSTALLER - 12/11/2024 3:30 PM CDT Images from the original note were not included. Subjective/Objective Patient ID: Benigno Amanda is a 79 y.o. male. This patient has verbally consented to recording this visit in order to utilize AI technology in generating this note. Chief Complaint Earache (R ear pain and sinus facial discomfort x 3 weeks. ) History of Present Illness Benigno Dow is a 79 year old male who presents with ear pain and sinus congestion for 3 weeks. He has been experiencing ear pain primarily in the right ear for the past three weeks. Initially, he thought it was swimmer's ear and used some treatment, which provided partial relief but did not fully resolve the symptoms. In addition to the ear pain, he describes having a persistent sinus issue, which he refers to as a 'sinus thing'. He experiences congestion and a runny nose. No fever, chills, chest pain, or difficulty breathing. He has not been on any antibiotics in the past thirty days and is not allergic to any medications. Review of Systems All other systems reviewed and are negative. Physical Exam HEENT: Right ear infection with redness and inflammation. No sinus tenderness. Physical Exam Vitals reviewed. Constitutional: General: He is not in acute distress. Appearance: Normal appearance. He is not ill-appearing. HENT: Head: Normocephalic. Right Ear: Ear canal and external ear normal. A middle ear effusion is present. Tympanic membrane is erythematous and bulging. Left Ear: Tympanic membrane, ear canal and external ear normal. No middle ear effusion. Tympanic membrane is not erythematous or bulging. Nose: Congestion present. No rhinorrhea. Right Turbinates: Not swollen. Left Turbinates: Not swollen. Right Sinus: Maxillary sinus tenderness and frontal sinus tenderness present. Left Sinus: Maxillary sinus tenderness and frontal sinus tenderness present. Mouth/Throat: Lips: Ewing. Mouth: Mucous membranes are moist. Pharynx: Uvula midline. No pharyngeal swelling, oropharyngeal exudate or posterior oropharyngeal erythema. Cardiovascular: Rate and Rhythm: Normal rate and regular rhythm. Pulmonary: Effort: Pulmonary effort is normal. No respiratory distress. Breath sounds: Normal breath sounds. No decreased breath sounds or wheezing. Lymphadenopathy: Cervical: No cervical adenopathy. Skin: General: Skin is warm. Neurological: Mental Status: He is oriented to person, place, and time. Psychiatric: Behavior: Behavior is cooperative. Vitals: 12/11/24 1501 BP: 124/76 Pulse: 64 Resp: 20 Temp: 36.2 ??C (97.1 ??F) SpO2: 96% Weight: 89.4 kg (197 lb) Past Medical History: Diagnosis Date Gastric reflux GERD (gastroesophageal reflux disease) 30 yrs ago Hiatal hernia Hypertension Peripheral neuropathy Current Outpatient Medications: ALPRAZolam (XANAX) 0.5 mg tablet, TAKE 1/2 TABLET(0.25 MG) BY MOUTH EVERY NIGHT NEEDED FOR ANXIETY, Disp: 30 tablet, Rfl: 0 atorvastatin (LIPITOR) 40 mg tablet, Take 1 tablet (40 mg total) by mouth daily, Disp: 90 tablet, Rfl: 3 finasteride (PROSCAR) 5 mg tablet, Take 1 tablet (5 mg total) by mouth daily, Disp: 90 tablet, Rfl:2 HYDROcodone-acetaminophen (NORCO) 5-325 mg per tablet, Take 1 tablet by mouth every 6 (six) hours as needed for pain, Disp: 30 tablet, Rfl: 0 lisinopriL (PRINIVIL,ZESTRIL) 40 mg tablet, TAKE 1 TABLET(40 MG) BY MOUTH DAILY, Disp: 90 tablet, Rfl: 4 omeprazole (PriLOSEC) 20 mg capsule, Take 1 capsule (20 mg total) by mouth daily, Disp: 90 capsule,Rfl: 3 pregabalin (LYRICA) 75 mg capsule, Take 1 capsule (75 mg total) by mouth 2 (two) times a day, Disp:60 capsule, Rfl: 3 sildenafiL, pulm.hypertension, (REVATIO) 20 mg tablet, TAKE 1 TABLET BY MOUTH ONCE DAILY NEEDED FOR ERECTILE DYSFUNCTION, Disp: 20 tablet, Rfl: 11 amoxicillin-clavulanate (AUGMENTIN) 875-125 mg per tablet, Take 1 tablet by mouth 2 (two) times a day for 7 days, Disp: 14 tablet, Rfl: [address] (CYMBALTA) 30 mg capsule, Take 1 capsule (30 mg total) by mouth daily, Disp: 30 capsule, Rfl: 3 No Known Allergies Social History Tobacco Use Smoking status: Never Smokeless tobacco: Never Substance and Sexual Activity Drug use: Yes Sexual activity: Not Currently Partners: Female Alcohol Use: Not At Risk (12/11/2022) AUDIT-C Frequency of Alcohol Consumption: Never Average Number of Drinks: Patient does not drink Frequency of Binge Drinking: Never Past Surgical History: Procedure Laterality Date EPIDURAL INJECTION LUMBOSACRAL N/A 10/21/2014 EPIDURAL INJECTION LUMBOSACRAL N/A 09/14/2014 EPIDURAL INJECTION LUMBOSACRAL N/A 02/28/2013 EPIDURAL INJECTION LUMBOSACRAL N/A 10/28/2012 FL FLUORO GUIDED INJECTION HIP LEFT Left 04/08/2020 FL FLUORO GUIDED INJECTION HIP LEFT Left 01/17/2021 FL FLUORO GUIDED INJECTION HIP LEFT Left 06/06/2021 FL UPPER GI AIR CONTRAST W KUB Left 08/19/2020 FL UPPER GI AIR CONTRAST W KUB Left 09/22/2024 HERNIA REPAIR HIP SURGERY IR INJECTION ARTHROGRAM SI JOINT LEFT INCLUDES IMAGING GUIDANCE Left 09/05/2021 JOINT REPLACEMENT 01/2022 KNEE ARTHROSCOPY Arthroscopy knee KNEE ARTHROSCOPY W/ LATERAL RELEASE R. knee 20 yrs ago KNEE SURGERY Assessment/Plan 1. Non-recurrent acute suppurative otitis media of right ear without spontaneous rupture of tympanic membrane (Primary) - amoxicillin-clavulanate (AUGMENTIN) 875-125 mg per tablet; Take 1 tablet by mouth 2 (two) times aday for 7 days Dispense: 14 tablet; Refill: 0 Results Assessment & Plan Otitis media Acute otitis media in the right ear with persistent redness and inflammation for three weeks. Sinusitis Persistent sinus congestion for three weeks without pain or pressure. - Prescribed Adoxa (doxycycline) twice daily for one week. Education The treatment for Ear Infections (otitis media) may include any of the following: Take antibiotics as prescribed until they are gone. Your ear pain should begin to improve over the next 24-72 hours, however the fluid behind your ear drum(s) can take up to 2 weeks to spontaneously resolve, your ear may sound muffled or pop off and on during this 2 weeks, this is normal. For ear pain: You may take Tylenol (acetaminophen) or Advil/Motrin (ibuprofen) as needed for pain. Please follow package directions. A warm (not hot) heating pad held over the ear can also help relieve the pain from the earache. Youshould use a thin cloth such as a dry washcloth between your skin and the heating pad. Things you can do to help your ear return to normal: Drink plenty of fluids Take a once day antihistamine like claritin or zytec Sleep with your head of bed elevated to encourage drainage You can try an OTC antihistamine nasal spray, like Nasacort, to help the congestion as well. Adults may chew gum, or suck on lozenges to encourage your eustachian tube to drain Follow up with your Primary Care Physician in 2 weeks for ear recheck or sooner if symptoms worsen or are not improving as planned. GO TO THE ER WITH ANY NEW ONSET OF FEVER, PAIN BEHIND THE EAR AND/OR REDNESS OVER THE BONE BEHIND THE EAR, OR SWELLING OF THE EXTERNAL EAR AND/OR EXTERNAL EAR APPEARING TO BE DISPLACED DOWNWARD. THESE ARE ALL SIGNS OF A SERIOUS COMPLICATION AND REQUIRES IMMEDIATE ATTENTION. Disposition Treatment plan including expectations, follow up, and return precautions discussed with patient/parent, verbalizes understanding. Medication dosage, use, and potential adverse reactions discussed with patient/parent. Advised to follow up with PCP if symptoms do not resolve as expected or sooner if condition worsens. Signs/symptoms warranting ER evaluation reviewed. Patient and/or guardian was given an opportunity to ask questions, questions answered. Jennifer Escoto NP This office note has been partially dictated using [employer] software, and as a result portions of the record may have been created with this software. Occasional wrong-word or '[id number]' substitutions may have occurred due to the inherent limitations of voice recognition software. Read the chartcarefully and recognize, using context, where substitutions have occurred. documented in this encounter Plan of Treatment Not on file documented as of this encounter Visit Diagnoses Diagnosis Non-recurrent acute suppurative otitis media of right ear without spontaneous rupture of tympanic membrane- Primary documented in this encounter Care Teams Glaciologist Relationship Specialty Start Date End Date Alberto Vasquez MD PCP - General Internal Medicine 06/26/23 documented as of this encounter
--- OUTSIDE RECORDS SUMMARY | 2024-12-12 13:08 | XMS_ITS | Encounter Summary ---
Author Organization [facility] Address [address] [place] [address] Phone Care Team Providers Care Shear Operator Automatic Name Role Phone Alberto Vasquez MD Primary Care Provider [phone]- [phone] Reason for Visit * Reason Comments Return Patient Encounter Details Date Type Department Care Team (Late st Contact Info) Description 12/11/2024 10:00 AM CDT Office Visit 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 Dr. Dangelo has recommended the following treatment: Surgical Recommendation-Staged surgery on 2 days: L5-S1 anterior lumbar interbody fusion with vascular surgery L5-S1 posterior spinal fusion with instrumentation, Left L5-S1 decompression Surgery Date(s)-tbd (pending availability of the vascular surgeon): Estela will contact you withinthe next few days to discuss surgery dates Prior to surgery, you will be scheduled for an appointment for pre operative teaching with Estela and an appointment with the Anesthesia Nurse Practitioner, which will include a medical history assessment and lab work. -You will also be scheduled for a pre-operative appointment with the vascular surgery team. You will be contacted to schedule this appointment once the surgery dates are confirmed You will need to contact your polisher sand and/or other specialists for surgical clearance if applicable. Their written release is required prior to surgery. Estela will contact you to confirm pre-operative appointments and surgery details. She will also send you a letter with all pre-operative appointments and surgery date/ arrival time. Please let me know if you have any questions. Estela Brannon RN, BSN Clinical Nurse Coordinator to Dr. Reuben Dangelo Jr. Department of Orthopedic Spine Surgery Important Phone Numbers: Estela, Nurse Coordinator to Dr. Dangelo: [phone] FMLA/Leave or Disability Paperwork: Dr. Dangelo will complete leave paperwork for your surgical date through your post operative restrictions. If paperwork is needed for your employer, please either attach the paperwork to [employer] it to [phone]. documented in this encounter Progress Notes * Reuben Dangelo MD - 12/11/2024 10:00 AM CDT Images from the original note were not included. Established Patient Visit Interim History Benigno Amanda returns to our office today for preoperative discussion. He has persistent symptoms which are similar to prior and he feels have been worsening. Physical Examination Benigno is pleasant, well-developed, well nourished and in no acute distress. Cervical spine range ofmotion is appropriate. Lumbar spine range of motion is appropriate. Patient is able to ambulate with a slight antalgic, wide-based gait. Tandem gait: Able to perform with some difficulty. Neal: Negative bilaterally. Inverted radial reflex: Negative bilaterally. Upper extremity reflexes: 2+ symmetric bilateral triceps, biceps, radial. Lower extremity reflexes: 2+ symmetric bilateral patellar and Achilles. Clonus: Negative bilaterally. Babinski: Negative bilaterally. Romberg mildly unsteady. Sensation: C5-T1: SILT and equal in all dermatomes L2-S1: SILT and equal in all dermatomes Motor: Muscle Strength Left Right Deltoid (C5) 5/5 5/5 Biceps (C5, C6) 5/5 5/5 Triceps (C7) 5/5 5/5 Wrist extensors (C6) 5/5 5/5 Wrist flexors (C7) 5/5 5/5 Finger extensors (C7) 5/5 5/5 Finger flexors (C8) 5/5 5/5 Interossei of hand (T1) 5/5 5/5 Iliopsoas (L1, L2) 5/5 5/5 Quadriceps (L3) 5/5 5/5 Tibialis anterior (L4, L5) 5/5 5/5 Extensor hallicus longus (L5) 5/5 5/5 Gastrocsoleus complex (S1) 5/5 5/5 BLE: Warm and well-perfused distally. PROMIS Scores 11/13/2023 12/11/2023 02/14/2024 08/08/2024 09/16/2024 12/11/2024 PROMIS Pain Interference 61.7 64.3 61.5 60.5 64 65.7 Physical Function V2.0 41.3 41.2 39.4 40.2 39.4 38.6 Anxiety V1.0 53.5 51.2 51.2 51.2 54 58 Depression 54.3 51 49.9 51.2 51 51.7 Review of Plain Radiographs/Studies My independent interpretation of the patient's imaging studies is as follows: DEXA from 12/10/2024 was reviewed by me today. It is consistent with osteopenia. T-scores are as follows: L1-L4: 0.0 Right femoral neck: -1.1 Right total hip: 0.0 Impression/Diagnosis The patient is a 79 y.o. male with left buttock and left lower extremity pain consistent with left L5 radiculopathy secondary to L5-S1 disc degeneration with disc collapse causing left L5-S1 neural foraminal stenosis. He has performed extensive appropriate nonoperative treatments and has persistentsymptoms which are negatively affecting his quality of life. He had an excellent response to a leftL5 selective nerve root block, confirming the left L5 nerve root compression as the pain generator.He is requesting surgery. Treatment Plan We again discussed his treatment options, both nonoperative and surgical. He is requesting surgery.What I proposed was a front/back operation to be performed in a staged fashion involving L5-S1 anterior lumbar interbody fusion to be performed on 1 day followed by L5-S1 posterior spinal fusion withinstrumentation with possible left L5-S1 facetectomy, foraminotomy, and removal of the left L5 foraminal hook osteophyte to be performed on a 2nd day. Plan to perform his surgery with BMP 2. I have reviewed the possible benefits, alternatives, as well as the risks of anterior lumbar discectomy and interbody fusion posterior spinal fusion with instrumentation with decompression. The risksof surgery include, but are not limited to, the risk of infection, bleeding requiring transfusion, spinal fluid leak, damage to the thecal sac and/or nerve roots with resultant permanent weakness, numbness or paralysis, failure of the implanted hardware, damage to the aorta, inferior vena cava, iliac arteries and veins, and retrograde ejaculation in males. We also discussed the lack of guarantee of improvement of their symptoms. We also discussed the risk of pseudoarthrosis, risk of iatrogenic spinal deformity, and adjacent level disease that may require further surgery in the future. We alsodiscussed the risk of medical or anesthetic complications including DVT, PE, stroke, or . We discussed the risks and benefits of BMP-2 and also that its use in this case is off-label. Risksinclude osteolysis, seroma, radiculitis/radiculopathy, and ectopic bone formation. Benefits includeincreasing the likelihood of solid bony fusion. We will help him get scheduled for surgery at a time that works for him. All of the patient's questions were answered. They understand, agree, and are happy with this plan. Reuben Dangelo Jr., MD Fishing Vessel Mate Department of Orthopaedic Surgery Division of Spine Surgery [place], [place] Marine Resource Economist done by [employer]; therefore, variances and inaccuracies may occur. I reviewed the patient problem list pertinent to the visit today, but the entire patient problem list was not reviewed today. Total time spent on this patient visit today was 20 minutes dedicated to chart review, independent imaging review, patient evaluation, examination, counseling and education, and coordination of care. documented in this encounter Plan of Treatment Not on file documented as of this encounter Visit Diagnoses Diagnosis Lumbar radiculopathy- Primary Thoracic or lumbosacral neuritis or radiculitis, unspecified documented in this encounter Discontinued Medications Medication Sig Discontinue Reason Start Date End Da te gabapentin (NEURONTIN) 300 mg capsule Take 1 capsule (300 mg total) by mouth 2 (two) times a day No longer taking - Do not display on AVS 11/11/2024 12/11/2024 documented as of this encounter Care Teams Shear Operator Automatic Relationship Specialty Start Date End Date Alberto Vasquez MD PCP - General Internal Medicine 06/26/23 documented as of this encounter
--- OUTSIDE RECORDS SUMMARY | 2024-12-12 13:08 | XMS_ITS | Referral Summary ---
Author Organization [facility] Healthcare Address [address] [place] [address] Care Team Providers Care Pattern Molder Name Role Phone Alberto Vasquez MD Primary Care Provider [phone] Encounters Date Type Department Care Team Description 12/11/2024 3:30 PM CDT Office Visit [facility] at [address] [address] Jennifer Escoto NP Non-recurrent acute suppurative otitis media of right ear without spontaneous rupture of tympanic membrane (Primary Dx) 12/11/2024 10:00 AM CDT Office Visit [facility] Orthopaedic Surgery [address] [facility] Medical Office Building [address] [place] [address] Reuben Dangelo MD Lumbar radiculopathy (Primary Dx) 12/10/2024 1:36 PM CDT - 12/10/2024 11:59 PM CDT Hospital Encounter [facility] Imaging [address] [place] [address] Reuben Dangelo MD Lumbar radiculopathy Discharge Disposition: Discharge to home or self care 12/10/2024 12:56 PM CDT - 12/10/2024 11:59 PM CDT Hospital Encounter [facility] - [address] [facility] [address] [facility] [address] [place] [address] Osteoporosis, unspecified osteoporosis type, unspecified pathological fracture presence Discharge Disposition: Discharge to home or self care 12/03/2024 10:00 AM CDT Office Visit [facility] Neuro Muscle [address] [facility] 6th [place] [address] [place] [address] Radha Severino NP Sensorimotor neuropathy (Primary Dx) 11/13/2024 Telephone [facility] Orthopaedic Surgery [address] [facility] 6th Floor [address] [place] [phone] Karma Workman MD 11/13/2024 12:30 PM CDT Office Visit [facility] Orthopaedic Surgery [address] [place] [address] Office Building [address] [place] [address] Reuben Dangelo MD Osteoporosis, unspecified osteoporosis type, unspecified pathological fracture presence (Primary Dx); Lumbar radiculopathy 09/22/2024 1:55 PM CDT - 09/22/2024 11:59 PM CDT Hospital Encounter [facility] [address] [place] [address] [address] [place] [address] Karma Workman MD Lumbar radiculopathy; Pain of left hip; Myofascial pain; Hereditary and idiopathic peripheral neuropathy; Spinal stenosis, lumbar region, with neurogenic claudication Discharge Disposition: Discharge to home or self care 09/18/2024 Telephone Radiology - 9[address] Ortho [address] [facility] [address] [place] [address] Alyssa Lees, 09/16/2024 10:07 AM CDT - 09/16/2024 11:59 PM CDT Hospital Encounter [facility] [address] [place] [address] [address] [place] [phone] Lumbar radiculopathy Discharge Disposition: Discharge to home or self care 09/16/2024 10:20 AM CDT Office Visit [facility] Orthopaedic Surgery [address] [place] [address] Office Building [address] [place] [address] Karma Workman MD Lumbar radiculopathy (Primary Dx); Pain of left hip; Myofascial pain; Hereditary and idiopathic peripheral neuropathy; Spinal stenosis, lumbar region, with neurogenic claudication from Last 3 Months Allergies No known active allergies Medications atorvastatin [...] by mouth daily 90 tablet 2 5 06/23 Active pregabalin (LYRICA) 75 mg capsule [...] negative:: 05/1805/17/2022 Aftercare following joint replacement surgery USP (current) use of aspirin 02/16/2022 Other chronic pain 02/16/2022 Arthritis of left hip 02/14/2022 Primary osteoarthritis of left hip 01/16/2022 Overview (01/16/2022): Added automatically from request for surgery [id number] Hereditary and idiopathic neuropathy, unspecifie d 05/28/2021 [...] Overview (12/11/2018): Thyssen q3yr EGD Last EGD 2018 Assessment & Plan (12/11/2022 4:31 PM CDT): [...] left Assessment & Plan (05/22/2018 4:44 PM MAINTENANCE LEADER): Renal condition is improving with treatment. Continue current medications. Renal condition will be reassessed in 1 month. We will check a renal us for stones Assessment & Plan (05/17/2018 4:40 PM MAINTENANCE LEADER): Renal condition is newly identified. Medication changes [...] gangrene 06/29/2016 12/05/2017 Nervousness(799.21) 05/29/2013 12/06/19 18 Immunizations Immunization Administration Dates Next Due COVID-19 mRNA ([employer]) 0.3 m L (30 mcg) vaccine (12 [...] valent, Original/omicron Ba.1 02/19/2023 ZOSTER Recombinant 02/11/2018 Social History Tobacco Use Types Packs/Day Years [...] on file Legal Sex Male 8:24 PM MAINTENANCE LEADER Gender Identity Male 06/08/2019 10:04 PM MAINTENANCE LEADER Sexual Orientation Straight 06/08/2019 10 :04 PM MAINTENANCE LEADER Last Filed Vital Signs Vital Sign [place] [...] 11/13/2024 12:16 PM CDT Plan of Treatment Not on file Medical Devices Implanted Type Area Animal Nutrition Consultant Device Identifier Shelf Expiration Date Model / Serial / Lot Surgical Mesh Umbilical [employer] Shell Acet Hip Grp E Por Quad Ti Prime Am 60mm [id number] - [id number] Implanted:Qty: 1 on 02/14/2022 by Reuben Dangelo MD at [facility] Left: Hip [employer] [id number] 12/26/2028 [id number] / / [id number] [employer] [id number] Procotyl Prime Od40 Mm Liner Acetabular Sterile Latex Free - [id number] Implanted:Qty: 1 on 02/14/2022 by Reuben Dangelo MD at [facility] Left: Hip [employer] [id number] 02/25/2026 [id number] / / [id number] [employer] Dynasty Lineage 6.5mm 35mm Acetabular Screw Bone Biofoam [id number] - [id number] Implanted:Qty: 1 on 02/14/2022 by Reuben Dangelo MD at [facility] Left: Hip [employer] [id number] 08/26/2029 [id number] / / [id number] [employer] Dynasty Lineage 6.5mm 20mm Acetabular Screw Bone Biofoam [id number] - [id number] Implanted:Qty: 1 on 02/14/2022 by Reuben Dangelo MD at [facility] Left: Hip [employer] [id number] 01/26/2029 [id number] / / [id number] [employer] Profemur Tl2 Hip 9 High Offset Stem Femoral Sterile Latex Free [id number] - [id number] Implanted:Qty: 1 on 02/14/2022 by Reuben Dangelo MD at [facility] Left: Hip [employer] [id number] 11/25/2029 [id number] / / [id number] [employer] Procotyl 40mm 12/14 Medium Head Femoral Biolox Delta Sterile [id number] - [id number] Implanted:Qty: 1 on 02/14/2022 by Reuben Dangelo MD at [facility] Left: Hip [employer] [id number] 10/26/2029 [id number] / / [id number] Procedures Procedure Name Priority Date/Time Associated Diagnosis [...] by: Shanice Rabago M.D. Reuben Dangelo MD IM DXA PROCEDURE S Final Result * CT [...] the physician's procedure / OR operative note. Karma Workman MD IMG IR PROCEDURES Final [...] the abdominal aorta. Procedure Note Kiel Kelly, DO - 09/16/2024 EXAM: XR SPINE LUMBAR 4 [...] PROCEDURES Final Re sult * COLONOSCOPY (08/27/2017) [facility] Colonoscopy Normal Historical Provider HEALTH MAINTENANCE Final Result from Last 3 Months or Most Recently Relevant to Health Maintenance Insurance MEDICARE [facility] MEDICARE SUPPLEMENT MEDICARE [facility] MEDICARE SUPPLEMENT [facility]LY [facility] MEDICARE MEDICARE [employer] MEDICARE SUPPLEMENT MEDICARE [facility] MEDICARE [facility] MEDICARE SUPPLEMENT Advance Directives For more information, please contact: [phone] * Full Code (Latest Code Status on File) Date Activated Date Inactivated Comments 02/14/2022 3:09 PM 02/15/2022 4:20 PM Care Teams Pattern Molder Relationship Specialty Start Date End Date Alberto Vasquez MD PCP - General Internal Medicine 06/26/23
--- OUTSIDE RECORDS SUMMARY | 2024-12-12 13:08 | XMS_ITS | Encounter Summary ---
Author Organization [facility] Healthcare Address [address] [place] [address] Care Team Providers Care Pitting Machine Operator Name Role Phone Benigno Cordova MD Primary Care Provider [phone] Jennifer Sim DPT Unavailable [phone] Alberto Vasquez MD Primary Care Provider [phone] Benigno Cordova MD Primary Care Provider [phone] Alberto Vasquez MD Primary Care Provider [phone] Kevin Corona MD Primary Care Provider [phone] Alberto Vasquez MD Primary Care Provider [phone] Encounter Details Date Type Department Care Team (Late st Contact Info) Description 08/17/2020 Telephone [facility]) [address] [place] [address] Kevin Wooten, RT Social History Tobacco Use Types Packs/Day Years Used Date Smoking Tobacco: Never Smokeless Tobacco: Never Alcohol Use Standard Drinks/Week Comments No 0 (1 standard drink = 0.6 oz pur e alcohol) PHQ-2 Answer Date Recorded PHQ-2 Total Score (If total score is 3 or more points, staff should administer the PHQ-9) 0 12/15/2019 Sex and Gender Information Value Date Recorded Sex Assigned at Not on file Legal Sex Male 8:24 PM BUFFING AND SUEDING MACHINE OPERATOR Gender Identity Male 06/08/2019 10:04 PM BUFFING AND SUEDING MACHINE OPERATOR Sexual Orientation Straight 06/08/2019 10 :04 PM BUFFING AND SUEDING MACHINE OPERATOR documented as of this encounter Plan of Treatment Not on file documented as of this encounter Visit Diagnoses Not on filedocumented in this encounter Additional Health Concerns Infection Onset Date Last Indicated Resolved Time COVID: Suspected 06/06/2022 06/06/2022 06/06/2022 10:34 AM BUFFING AND SUEDING MACHINE OPERATOR COVID: Suspected 11/07/2022 11/07/2022 11/07/2022 12:11 PM CDT COVID: Suspected 12/31/2023 12/31/2023 12/31/2023 4:21 PM CDT documented as of this encounter Care Teams Pitting Machine Operator Relationship Specialty Start Date End Date Benigno Cordova MD PCP - General 08/10/16 07/17/21 Alberto Vasquez MD [address] [facility] [address] [address] PCP - General Internal Medicine 07/18/21 09/04/21 Benigno Cordova MD PCP - General 09/05/21 09/19/21 Alberto Vasquez MD [address] [facility] [address] [address] PCP - General Internal Medicine 09/20/21 12/10/22 [place] [address] PCP - General Family Medicine 12/11/22 06/25/23 Alberto Vasquez MD [address] [facility] [address] [address] PCP - General Internal Medicine 06/26/23 Jennifer Sim, DPT [address] [facility] [address] [place] [address] Physical Therapist Physical Therapy 12/25/19 06/07/21 documented as of this encounter
--- OUTSIDE RECORDS SUMMARY | 2024-12-12 13:08 | XMS_ITS | Clinical Summary ---
Author Organization [facility] Address [address] [place] [address] Care Team Providers Care Net Mvc Developer Name Role Phone Benigno Cordova MD Primary Care Provider [phone] Source Comments [facility] [employer],non-owned Affiliates and Associated Physician Practices is amultiple site organization consisting of ambulatory clinics and hospital sitesin [place], [place], [place] and [place]. This disclosure is being madepursuant to the Care Everywhere program and may not contain all information available regarding this patient. Last updated 18.[facility] [employer] Allergies No known active allergies Medications * Be aware that medications may not be up to date on this document. Alwaysverify current medications with the patient. Medication Sig Dispense Quantity Refills Last Filled Start D ate End Date Status OMEPRAZOLE PO Active FINASTERIDE PO Activ e Immunizations Immunization Administration Dates Next Due INFLUENZA VACCINE, HIGH-DOSE , QUADR. (FLUZONE HIGH-DOSE QUADRIVALENT; 65Y+), 0.7 ML (HD-IIV4) 02/26/2020,02/19/2019,02/19/2018,2016 Family History Medical History Relation Name Comments Diabetes - Type 2 Father Relation Name Status Comments Father Mother Social History Tobacco Use Types Packs/Day Years Used Date Smoking Tobacco: Never Smokeless Tobacco: Never Sex and Gender Information Value Date Recorded Sex Assigned at Not on file Legal Sex Male 11:04 AM RESAW OPERATOR Gender Identity Not on file Sexual Orientation Not on file Last Filed Vital Signs Vital Sign [place] Time Taken Comments Blood Pressure 120/84 04/18/2017 9:58 AM RESAW OPERATOR Pulse 60 04/18/2017 9:58 AM RESAW OPERATOR Temperature 36.8 C (98.3 F) 04/18/2017 9:58 AM RESAW OPERATOR Respiratory Rate 16 04/18/2017 9:58 AM RESAW OPERATOR Oxygen Saturation 97% 04/18/2017 9:58 AM RESAW OPERATOR Inhaled Oxygen Concentration - - Weight 95.3 kg (210 lb) 04/18/2017 9:58 AM RESAW OPERATOR Height 185.4 cm (6' 1) 04/18/2017 9:58 AM RESAW OPERATOR Body Mass Index 27.71 04/18/2017 9:58 AM RESAW OPERATOR Plan of Treatment Health Maintenance Due Date Last Done Comments DTAP/TDAP/TD VACCINES (1 - Tdap) 1964 PNEUMOCOCCAL VACCINE 50+ (1 of 1 - PCV) 1995 ZOSTER VACCINE (1 of 2) 1995 Respiratory Syncytial Virus (RSV) Vaccine Pt: or over 60 yrs (1 - 1-dose 75+ series) 2020 COVID-19 VACCINE (1 - 2023- season) 2024 DEPRESSION SCREENING 05/28/2024 INFLUENZA VACCINE (#1) 2025 0, 02/19/2019, 02/19/2018, Additional history exists HEPATITIS B VACCINE Aged Out No longe r eligible based on patient's age to complete this topic HIB VACCINE Aged Out No longer eligi ble based on patient's age to complete this topic HPV VACCINE Aged Out No longer eligi ble based on patient's age to complete this topic MENINGOCOCCAL (Group B) VACCINE SHARED DECISION-MAKING Aged Out No longer eligible based on patient's age to complete this topic MENINGOCOCCAL GROUPS A/C/Y/W VACCINE Aged Out No longer eligible based on patient's age to complete this topic Insurance MEDICARE MEDICARE [facility] Care Teams Net Mvc Developer Relationship Specialty Start Date End Date Benigno Cordova MD PCP - General Internal Medicine 07/13/16
[2024-12-12 13:12] LABS: Troponin I < 0.012 ng/mL (0.000-0.034)
[2024-12-12 13:22] LABS: Add Urine Microscopic? YES; Appearance Urine Clear (Clear); Glucose Urine UA Negative (Negative); Leukocyte Esterase Ur 1+ LEU/UL (Negative); Nitrate Urine Negative (Negative); Non Pathogenic Casts 0-2; Specific Grav Ur 1.020 (1.001-1.035)
--- NOTE | 2024-12-12 13:41 | ED_ITS ---
HPI - General Adult General Chief complaint: Weakness Stated complaint: weakness, lightheadedness Time Seen by Provider: 12/12/24 12:47 History of Present Illness HPI narrative: 79-year-old male presents to the emergency department for evaluation for 2 days of increased generalized weakness and 2 episodes of near-syncope. Patient states while he was walking he felt like he was going to pass out patient was able to stop walking and did recover from the episode. Patient states he did not need to sit or rest. Patient denies any heart palpitations chest pain or shortness of breath with these episodes. Related Data Allergies Allergy/AdvReac Type Severity Reaction Status Date / Time No Known Allergies Allergy Verified 12/12/24 11:58 Review of Systems 2 Review of Systems: All systems reviewed & are unremarkable except as noted in HPI and below Exam 2 Narrative: APPEARANCE: Well appearing, no pain, no distress, well-nourished. HEAD: normocephalic, atraumatic. EYES: PERRLA/EOMI, conjunctivae clear. NOSE: Normal no drainage EARS:TMS clear with good light reflex. THROAT: Pharynx clear, no exudate. NECK: Supple. No adenopathy, no masses. RESPIRATORY: Airway patent, respirations nonlabored. Clear to auscultation bilaterally, no rales, rhonchi, wheezing. CARDIOVASCULAR: Regular rate and rhythm without murmurs rubs or gallops. ABDOMINAL: Soft, nontender, nondistended, normal bowel sounds MUSCULOSKELETAL: Moves all extremities. Strength/ROM intact, No edema, No calf tenderness. NEURO: Alert. Cranial nerves II through XII intact. SKIN: Warm, dry. Normal Color Course Vital Signs Vital signs: Vital Signs Temperature 98.3 F 12/12/24 11:59 Pulse Rate 78 12/12/24 11:59 Respiratory Rate 20 12/12/24 11:59 Blood Pressure 174/73 H 12/12/24 11:59 Pulse Oximetry 95 12/12/24 11:59 Oxygen Delivery Room Air 12/12/24 11:59 Temperature 98.3 F 12/12/24 11:59 Pulse Rate 74 12/12/24 16:00 Respiratory Rate 16 12/12/24 16:00 Blood Pressure 128/84 12/12/24 16:00 Pulse Oximetry 99 12/12/24 16:00 Oxygen Delivery Room Air 12/12/24 11:59 Medical Decision Making [facility] Narrative Medical decision making narrative: 79-year-old male present to the emergency department for evaluation for to near syncopal episodes without actual syncope. Patient is currently afebrile but does have a leukocytosis of 10.3 and hemoglobin of 13.7. No significant abnormalities on his CMP patient's troponin was negative. UA was positive for leukocyte esterase and positive for high white blood cells. Patient is currently on Augmentin for suspected ear infection. Patient has no evidence of otitis media. Patient was negative for influenza RSV and for COVID. Chest x- ray shows no acute cardiopulmonary abnormality. UA is concerning for potential urinary tract infection. Patient does have history of urinary retention but had no postvoid residual emergency department. Patient will be switched from Augmentin to Keflex. Urine culture was ordered. Patient was treated with a L of lactated Ringer's able to ambulate at his baseline. Patient was not orthostatic in emergency department. Patient does feel comfortable with plan for discharge home. All questions concerns were addressed. Differential Diagnosis Differential Diagnosis: Syncope, near syncope, dehydration, orthostatic hypotension, urinary tract infection, COVID, RSV, influenza, pneumonia Vital Signs Vital Signs: Vital Signs Temperature 98.3 F 12/12/24 11:59 Pulse Rate 78 12/12/24 11:59 Respiratory Rate 20 12/12/24 11:59 Blood Pressure 174/73 H 12/12/24 11:59 Pulse Oximetry 95 12/12/24 11:59 Oxygen Delivery Room Air 12/12/24 11:59 Temperature 98.3 F 12/12/24 11:59 Pulse Rate 74 12/12/24 16:00 Respiratory Rate 16 12/12/24 16:00 Blood Pressure 128/84 12/12/24 16:00 Pulse Oximetry 99 12/12/24 16:00 Oxygen Delivery Room Air 12/12/24 11:59 Lab Data Lab results reviewed: Yes I reviewed the patient's lab results. 12/12/24 12:05 12/12/24 12:05 Labs: Lab Results 12/12/24 12/12/24 12/12/24 Range/Units 12:05 13:05 13:55 WBC 10.3 H (4.5-10.0) K/mm3 RBC 4.47 L (4.6-6.20) M/mm3 Hgb 13.7 L (14.0-18.0) g/dL Hct 41.4 L (42.0-52.0) % MCV 92.6 (80-100) fl MCH 30.6 (26-34) pg MCHC 33.1 (32-36) g/dl RDW 12.7 (11.5-14.5) % Plt Count 146 L (150-375) k/mm3 MPV 11.5 H (7.4-10.4) fl Immature Gran % (Auto) 0.6 H (0-0.5) % Neut % (Auto) 88.6 H (45.5-73.1) % Lymph % (Auto) 6.7 L (18.3-44.2) % Darke % (Auto) 3.7 (2.6-8.5) % Eos % (Auto) 0.1 (0-4.4) % Baso % (Auto) 0.3 (0.2-1.2) % Lymph # (Auto) 0.69 L (0.9-3.2) K/mm3 Darke # (Auto) 0.4 (0.1-0.6) K/mm3 Eos # (Auto) 0.0 (0-0.3) K/mm3 Baso # (Auto) 0.0 (0.0-0.1) K/mm3 Abs Immat Gran (auto) 0.06 H (0.00-0.031) K/mm3 Absolute Neuts (auto) 9.2 H (1.3-6.7) K/mm3 Absolute Nucleated RBC 0.000 (0.0-0.012) K/mm3 Nucleated RBC % 0.0 (0.0-0.2) % Sodium 134 L (137-145) mmol/L Potassium 4.7 (3.4-5.0) mmol/L Chloride 100 (98-107) mmol/L Carbon Dioxide 23 (22-30) mmol/L Anion Gap 11 (4-12) mmol/L BUN 26 H (9-20) mg/dL Creatinine 1.08 (0.7-1.3) mg/dL Estim Creat Clear Calc 56 ml/min Estimated GFR > 60 (59 - ) Glucose 163 H (65-110) mg/dL Calcium 9.9 (8.4-10.2) mg/dL Total Bilirubin 0.6 (0.2-1.3) mg/dL AST 32 (17-59) U/L ALT 29 (6-50) U/L Alkaline Phosphatase 58 (38-126) U/L Troponin I < 0.012 (0.000-0.034) ng/mL Total Protein 7.4 (6.3-8.2) g/dL Albumin 4.6 (3.5-5.1) g/dL Urine Color Yellow (Yellow) Urine Appearance Clear (Clear) Urine pH 6.0 (5.0-9.0) Ur Specific [place] 1.020 (1.001-1.035) Urine Protein Negative (Negative) mg/dL Urine Glucose (UA) Negative (Negative) mg/dL Urine Ketones Negative (Negative) mg/dL Ur Blood (Man) Negative (Negative) Urine Nitrate Negative (Negative) Urine Bilirubin Negative (Negative) Urine Urobilinogen 0.2 (<2.0) mg/dL Leukocyte Esterase Rfl 1+ H (Negative) PEARL/UL Urine RBC 0-2 (0-2) /hpf Urine WBC 6-10 H (0-3) /hpf Ur Squamous Epith Cells None seen (Few) /hpf Urine Bacteria None seen /hpf Urine Casts 0-2 Influenza A (RT-PCR) Negative (Negative) Influenza B (RT-PCR) Negative (Negative) RSV (RT-PCR) Negative (Negative) SARS-CoV-2 RNA (RT-PCR) Negative (Negative) Imaging Data Radiologist's impression: Impressions Chest X-Ray 12/12/24 12:38 IMPRESSION: 1: NO ACUTE CARDIOPULMONARY DISEASE. PROCEDURE: COMPARISON: FINDINGS: The lungs are clear. The cardiomediastinal silhouette is within normal limits. There are no pleural effusions. There is no pneumothorax suspected. IMPRESSION: 1: NO ACUTE CARDIOPULMONARY DISEASE. ECG Data EKG #1: EKG Interpretation: normal rate, sinus rhythm, no ectopy, non-specific ST changes, RBBB and left axis Discharge Plan Discharge Clinical Impression: Near syncope, Urinary tract infection Patient Disposition: Home Condition: Stable Instructions: Antibiotic Form Additional Instructions: Stop taking the Augmentin and start taking Keflex. Drink plenty of fluids. Have close follow-up with your primary care physician. If you have any worsening symptoms then please call or return to the emergency department. Patient Language: Afghan Prescriptions: New cephalexin 500 mg capsule 500 mg PO Q8H 7 Days Qty: 21 0RF Follow-up/Referrals: Christina,Alberto Coelho M.D. [Primary Care Provider] -
[2024-12-12] MEDS: cefTRIAXone 1 GM in SODIUM CHLORIDE 0.9% IV 50 ML 100 ML IVPB (13:58)
[2024-12-12 14:37] LABS: Influenza A QL RT-PCR Negative (Negative); Influenza B QL RT-PCR Negative (Negative); RSV RNA, RT-PCR Negative (Negative); SARS-CoV-2 RNA PCR Negative (Negative)
--- NOTE | 2024-12-12 14:37 | PC.NURSE ---
Pt. ambulating to bathroom. Gait steady
[2024-12-12] MEDS: LACTATED RINGERS 1,000 ML 999 ML IV CONT (15:25)
== END 2024-12-12 16:31 | disposition home or self-care (01) ==
PROVIDERS: Emergency Medicine; Emergency Provider Emergency Medicine; PCP Internal Medicine
DX: N39.0 Urinary tract infection, site not specified (principal); R55 Syncope and collapse; Z20.822 Contact with and (suspected) exposure to COVID-19
CPT/HCPCS: 36415; 71046; 80053; 81001; 84484; 85025; 87086; 87637; 93005; 96361; 96365; 99284; J0696; J7120